=== PATIENT | female | born 1980 | race Caucasian/White ===

== ENCOUNTER 2018-07-04 13:56 | Emergency (ER) | payer BC, OTHER ==
[2018-07-04 14:11] VITALS: TEMP 97.9; BMI 23.0
[2018-07-04] MEDS ORDERED: ONDANSETRON 4 MG/2 ML VIAL ONE ×2 (14:28→15:22)
[2018-07-04] MEDS ORDERED: ONDANSETRON 4 MG/2 ML VIAL IVPB ONE ×2 (14:36→15:22)
[2018-07-04] MEDS ORDERED: SODIUM CHLORIDE 1,000 ML IV STA ×2 (14:36→16:03)
--- NOTE | 2018-07-04 14:36 | PDOC ---
History of Present Illness - General Chief Complaint: Nausea/Vomiting Stated Complaint: NV Time Seen by Provider: 07/04/18 14:35 - History of Present Illness Initial Comments: 07/04/18 15:23 Chief complaint: Nausea and vomiting History of present illness: Patient began Trulicity with one injection on Monday as prescribed by her director utilization management for weight loss within a few hours she developed nausea and protracted vomiting that has persisted. She is vomiting all by mouth intake. She has had no hematemesis, and no bowel movements. She has mild epigastric pain that developed after multiple episodes of vomiting. Review of systems: Denies URI symptoms, sore throat, cough, fever/chills, chest pain, shortness of breath, melena, bloody stools, vaginal bleeding or discharge , urinary tract symptoms. Menses are regular, she is on control pills. Remainder systems reviewed and negative Past medical history: Obesity with 30 pound weight loss. Depression, anxiety. Specifically denies diabetes or hypoglycemia. Being followed with thyroid exams because relatives have had thyroid cancer. Social history: Denies tobacco alcohol or nonprescription drugs. 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 Father with coronary artery disease, multiple MIs, and cancer, uncertain variety Physical exam: Alert and oriented well-developed well-nourished mild distress due to nausea. No retching or vomiting. Cooperative. Afebrile, vital signs normal PERRLA, fundi benign, ENT clear. Mucous membranes dry Neck supple without bruit mass or nodes Chest clear with full breath sounds bilaterally CV S1 and S2 normal without murmur rub or gallop pulses full and symmetric no JVD or edema no bruits Abdomen soft nontender without mass or organomegaly area bowel sounds normal. Nondistended. Neurological intact Skin clear, no rash, adequate turgor. Extremities no CCE Impression: Nausea and vomiting secondary to injection of long-acting hypoglycemic for weight loss. No abdominal pain or sign of intraperitoneal disease. Plan: Fluids and antiemetic, labs and observation.. Past History - Past Medical History Allergies/Adverse Reactions: Allergies Allergy/AdvReac Type Severity Reaction Status Date / Time No Known Allergies Allergy Unverified 07/04/18 14:06 Home Medications: Ambulatory Orders Citalopram Hydrobromide [Citalopram HBr] 40 mg PO DAILY 07/04/18 Famotidine [Pepcid] 40 mg PO DAILY #14 tablet 07/04/18 Ondansetron [Zofran Odt -] 4 - 8 mg SL TID PRN #20 od.tablet 07/04/18 Spironolactone 50 mg PO BID 07/04/18 CVA: No COPD: No Other medical history: KID STONES, - Suicide/Smoking/Psychosocial Hx Smoking History: Never smoked Hx Alcohol Use: No Drug/Substance Use Hx: No *Physical Exam - Vital Signs Last Vital Signs Temp Pulse Resp BP Pulse Ox 97.9 F 133 H 19 139/72 96 07/04/18 14:05 07/04/18 14:05 07/04/18 14:05 07/04/18 14:05 07/04/18 14:05 ED Treatment Course - LABORATORY CBC & Chemistry Diagram: 07/04/18 14:26 07/04/18 14:26 - ADDITIONAL ORDERS Additional order review: Laboratory Results 07/04/18 14:16 Urine Color Cheryl Urine Appearance Slightly Urine pH 5.5 Urine Protein Negative Urine Glucose (UA) Negative Urine Ketones 3+ H Urine Blood Trace-intact Urine Nitrite Negative Urine Bilirubin 1+ H Urine Urobilinogen 0.2 Ur Leukocyte Esterase Negative Medical Decision Making - Medical Decision Making 07/04/18 16:48 CBC, chemistries, including sugar, and urinalysis without significant abnormalities Patient feels much better after treatment. Nausea has resolved. No further vomiting. Tolerating oral fluids well. Abdomen remains soft and nontender Instructed to discontinue precipitating medication, continue Zofran and Pepcid as directed, and follow-up with primary physician as soon as possible. Fully ambulatory and in no distress at discharge. *DC/Admit/Observation/Transfer Diagnosis at time of Disposition: Medication reaction Qualifiers: Encounter type: initial encounter Qualified Code(s): T50.905A - Adverse effect of unspecified drugs, medicaments and biological substances, initial encounter - Discharge Dispostion Disposition: HOME Condition at time of disposition: Improved Decision to Admit order: No - Prescriptions Prescriptions: Famotidine [Pepcid] 40 mg PO DAILY #14 tablet Ondansetron [Zofran Odt -] 4 - 8 mg SL TID PRN #20 od.tablet PRN Reason: Nausea And/Or Vomiting - Referrals Referrals: Bob Tobias MD [Staff Physician] - - Patient Instructions Printed Discharge Instructions: DI for Nausea -- Adult, DI for Vomiting -- Adult Additional Instructions: Stop Trulicity Medications as prescribed See primary physician as soon as possible for further evaluation Return to ER if symptoms worsen or further symptoms develop. - Post Discharge Activity Forms/Work/School Notes: Back to Work
[2018-07-04 14:47] LABS: EPITHELIAL CELLS MANY /hpf
[2018-07-04 14:48] LABS: BASO % 0.5 % (0-2.0); EOS % 0.6 % (0-4.5); HEMATOCRIT 42.4 % (32.4-45.2); HEMOGLOBIN 14.3 GM/dl (10.7-15.3); LYMPH % 23.4 % (8-40); MCHC 33.7 g/dl (32.0-36.0); MEAN CELL VOLUME 94.9 fl (80-96); MEAN PLT VOLUME 8.6 fl (7.5-11.1); MONO % 4.9 % (3.8-10.2); NEUT % 70.6 % (42.8-82.8); PLATELET COUNT 345 K/MM3 (134-434); RBC 4.47 M/mm3 (3.60-5.2); RDW 12.1 % (11.6-15.6); WHITE BLOOD COUNT 11.4 K/mm3 (4.0-10.8)
[2018-07-04 14:54] LABS: ALBUMIN 4.2 g/dl (3.4-5.0); ALK PHOS 29 U/L (45-117); ANION GAP 11 MMOL/L (8-16); BILIRUBIN,TOTAL 1.2 mg/dl (0.2-1); BLOOD UREA NITROGEN 14 mg/dl (7-18); CALCIUM 9.9 mg/dl (8.5-10); CHLORIDE 99 mmol/L (98-107); CO2 25 mmol/L (21-32); CREATININE 0.9 mg/dl (0.55-1.3); GLUCOSE,RANDOM 81 mg/dl (74-106); POTASSIUM 4.2 mmol/L (3.5-5.1); SGOT/AST 28 U/L (15-37); SGPT/ALT 23 U/L (13-61); SODIUM 135 mmol/L (136-145); TOT PROT 8.1 g/dl (6.4-8.2)
[2018-07-04] MEDS ORDERED: FAMOTIDINE 20 MG/50 ML IVPB 20 MG/50 ML MG IVPB ONE ×2 (15:22)
[2018-07-04 15:52] VITALS: BP 108/72; PULSE 93
[2018-07-04] MEDS ORDERED: ACETAMINOPHEN 1000 MG/100 ML VIAL (NON FORMULARY) IVPB ONE (16:03)
[2018-07-04] MEDS ORDERED: ACETAMINOPHEN INJECTION 100 ML IVPB ONE (16:14)
== END 2018-07-04 17:04 | disposition home or self-care (01) ==
LOC: FER 13:56
PROC: 3E033NZ Introduction of Analgesics, Hypnotics, Sedatives into Peripheral Vein, Percutaneous Approach (ICD-10-PCS; principal; 2018-07-04)
PROC: 3E033GC Introduction of Other Therapeutic Substance into Peripheral Vein, Percutaneous Approach (ICD-10-PCS; 2018-07-04)
PROC: 3E0337Z Introduction of Electrolytic and Water Balance Substance into Peripheral Vein, Percutaneous Approach (ICD-10-PCS; 2018-07-04)
DX: R11.2 Nausea with vomiting, unspecified (principal); T50.905A Adverse effect of unspecified drugs, medicaments and biological substances, initial encounter; X58.XXXA Exposure to other specified factors, initial encounter; Y93.9 Activity, unspecified; Y92.9 Unspecified place or not applicable
CPT/HCPCS: 36415; 80053; 81003; 81015; 81025; 85025; 99283-25; J0131; J7030